=== PATIENT | female | born 1955 | race Caucasian/White ===

== ENCOUNTER → 2018-03-08 | Outpatient (CLI) | payer MEDICARE, OTHER ==
--- NOTE | 2018-03-08 12:03 | ECHOS ---
STRESS ECHOCARDIOGRAM INDICATIONS: Abnormal EKG. MEDICATIONS: Atorvastatin. BASELINE HEART RATE: 62 BASELINE BLOOD PRESSURE: 129/71 MAXIMUM HEART RATE: 150 MAXIMUM BLOOD PRESSURE: 174/61 85% MPHR: 132 METS: 7.0 MAXIMUM STAGE REACHED: 2 TOTAL EXERCISE TIME: 5:00 CLINICAL INFORMATION: Baseline rhythm is sinus mechanism, rate 62, normal axis and intervals. Voltage criteria for left ventricular hypertrophy. Nonspecific ST-T wave changes, baseline blood pressure 129/71 mmHg. Patient exercised on [place] protocol for 5 minutes reaching a peak rate of 150 beats per minute which is above her 85% maximum predicted heart rate. Peak blood pressure 174/61 mmHg. Test was terminated due to fatigue. There was no chest pain. Electrocardiographic monitoring revealed no evidence of diagnostic ischemic ST deviation. Occasional PVCs were noted. FINDINGS: Baseline echocardiogram revealed normal function at peak exercise, there was normal wall thickening and motion. CONCLUSION: 1. Decreased exercise tolerance with nondiagnostic electrocardiograph stress testing secondary to baseline EKG abnormality with occasional premature ventricular contractions. 2. Normal stress echocardiogram with no evidence of stress-induced ischemia. MMODL / IJN: [id number] /
== END | disposition home or self-care (01) ==
LOC: RADNMMAIN 08:41
PROVIDERS: ATTEND Internal Medicine
DX: R94.31 Abnormal electrocardiogram [ECG] [EKG] (principal)
CPT/HCPCS: C8930; Q9950; 93351

== ENCOUNTER 2018-08-09 16:40 | Emergency (ER) | payer MEDICARE, OTHER ==
[2018-08-09] MEDS ORDERED: LIDOCAINE 1% INJ 10MG/ML (20 ML MDV) SQ ONE (17:39)
--- NOTE | 2018-08-09 19:06 | ED ---
General Adult HPI - General Chief complaint: Wound/Laceration Stated complaint: finger lacs Time Seen by Provider: 08/09/18 17:38 Source: patient Mode of arrival: ambulatory Limitations: no limitations - History of Present Illness Initial comments: Patient is a 63-year-old male presents emergency Department with a laceration on her right second and third digit. Patient reports earlier today she was in the pool when she attempted to get out and lacerated her fingers on the edge. Patient denies any range of motion, numbness or tingling. Patient is not on blood thinners. Patient states her tetanus status is up-to-date. Patient reports minimal pain that does not radiate anywhere. Patient reports the pain is throbbing and rates it at a 4. Patient reports taking ibuprofen to alleviate the symptoms. - Related Data Allergies Allergy/AdvReac Type Severity Reaction Status Date / Time Penicillins Allergy Anaphylaxis Verified 08/09/18 16:45 Review of Systems ROS Statement: Those systems with pertinent positive or pertinent negative responses have been documented in the HPI. ROS Other: All systems not noted in ROS Statement are negative. Past Medical History Past Medical History: Hypertension History of Any Multi-Drug Resistant Organisms: None Reported Past Surgical History: No Surgical Hx Reported Past Psychological History: No Psychological Hx Reported Smoking Status: Never smoker Past Alcohol Use History: Occasional Past Drug Use History: None Reported General Exam - General Exam Comments Initial Comments: General: Well-developed well-nourished distress HEENT: Normocephalic/atraumatic, PERLL, Neck: Supple, nontender, trachea midline Chest/Lungs: Normal respirations, no signs of respiratory distress clear to auscultation bilaterally no wheezes, rales, rhonchi Cardiac: Regular rate and rhythm, normal S1-S2, no murmurs rubs or gallops Abdomen/GI: Soft nontender, bowel sounds equal or quadrant x4, no guarding, no rebound no CVA tenderness Musculoskeletal: Normal capillary refill, bilaterally. +2 ulnar and radial pulses, bilaterally. 3 cm laceration on the right second finger. 4 cm laceration on right third digit. Skin: Warmth, no rashes or lesions, no cyanosis or diaphoresis Neurologic: AAO x 3, CN 2-12 intact, Psychiatric: Mood and affect normal, judgment normal Limitations: no limitations Course Vital Signs 08/09/18 08/09/18 16:43 19:26 Temperature 97.9 F 98.8 F Pulse Rate 73 75 Respiratory 20 18 Rate Blood Pressure 212/105 136/94 O2 Sat by Pulse 99 96 Oximetry Procedures - Laceration Laceration #1 Consent Obtained: verbal consent Indication: laceration Site: other (right second digit) Size (cm): 3 Description: linear Depth: simple, single layer Anesthetic Used: lidocaine 1% Anesthesia Technique: local infiltration Amount (mls): 10 Pre-repair: irrigated extensively Type of Sutures: nylon Size of Sutures: 4-0 Number of Sutures: 7 Technique: simple, interrupted Patient Tolerated Procedure: well Laceration #2 Consent Obtained: verbal consent Indication: laceration Site: other (3rd right digit) Size (cm): 4 Description: linear Depth: simple, single layer Anesthetic Used: lidocaine 1% Anesthesia Technique: local infiltration Amount (mls): 10 Pre-repair: irrigated extensively Type of Sutures: nylon Size of Sutures: 4-0 Number of Sutures: 7 Technique: simple, interrupted Patient Tolerated Procedure: well Medical Decision Making - Medical Decision Making Patient is a 63-year-old female presented to emergency department with laceration on right second and third digit. Lacerations were repaired with 7 sutures each. Patient tolerated the procedure well. Tetanus prophylaxis was not administered. Patient advised to return for suture removal in 10-14 days or sooner if symptoms worsen. Patient advised to follow with primary care. Case discussed with physician. Disposition Clinical Impression: Laceration Disposition: HOME SELF-CARE Condition: Stable Instructions (If sedation given, give patient instructions): Care For Your Stitches (DC), Laceration (DC) Additional Instructions: Please follow proper wound care instructions. Please return to emergency department for suture removal in 10-14 days. Please follow up with primary care. Please return to emergency department if symptoms worsen. Is patient prescribed a controlled substance at d/c from ED?: No Referrals: Baldo Ernst MD [Primary Care Provider] - 1-2 days Time of Disposition: 19:05
[2018-08-09] MEDS ORDERED: IBUPROFEN 400 MG TAB PO STA (19:21)
[2018-08-09 19:28] VITALS: BP 136/94; PULSE 75; RESP 18; TEMP 98.8
== END 2018-08-09 19:26 | disposition home or self-care (01) ==
LOC: EC 16:40
DX: S61.210A Laceration without foreign body of right index finger without damage to nail, initial encounter (principal); S61.212A Laceration without foreign body of right middle finger without damage to nail, initial encounter; Z88.0 Allergy status to penicillin; X58.XXXA Exposure to other specified factors, initial encounter; Y92.89 Other specified places as the place of occurrence of the external cause
CPT/HCPCS: 99282; 12002; J2001

== ENCOUNTER → 2019-03-27 | Outpatient (CLI) | payer MEDICARE, OTHER ==
--- NOTE | 2019-03-27 12:36 | CTL ---
EXAMINATION TYPE: CT Low Dose Lung DATE OF EXAM ORDERED: 03/27/2019 HISTORY: Personal history of tobacco abuse. Lung cancer screening CT DLP: [address] CTDI: 3.29 mGy Automated exposure control for dose reduction was used. SCREENING VISIT: Initial COMPARISON: None TECHNIQUE: Low dose computed tomography scan was performed through the chest at 1 mm thick sections a nd reconstructed images in the coronal plane at [address] DIAGNOSTIC QUALITY: Limited, but interpretable FINDINGS: LUNG NODULES: There is a 3 x 3 mm solid pulmonary nodule in the left upper lobe on series 5 image 96. On series 5 image 117 there is a 3 x 4 mm solid pulmonary nodule in the left upper lobe. LUNGS: COPD: Severity: Mild Fibrosis: Severity: None Lymph nodes: Nonenlarged Other findings: Atelectasis along the superior mediastinal border of the left upper lobe. There is sc arring along the anterior right costophrenic angle on coronal series 6 image 70 and axial series 5 im age 10 and 4. RIGHT PLEURAL SPACE: Effusion: None Calcification: None Thickening: None Pneumothorax: None LEFT PLEURAL SPACE: Effusion: None Calcification: None Thickening: None Pneumothorax: None HEART: Heart Size: Normal Coronary calcification: Very few Pericardial effusion: None OTHER FINDINGS: Upper abdomen: Small hiatal hernia Bony thorax: Minimal degenerative change of the thoracic spine. IMPRESSION: Lung RADS 2-benign appearance or behavior. Annual screening low dose CT chest is recommen ded to evaluate for interval growth. FOLLOW UP CT CHEST RECOMMENDATION: Low-dose screen chest CT in [address] LUNG RAD: Lung-Rad 2 Benign Appearance or Behavior
== END | disposition home or self-care (01) ==
LOC: RADCTMAIN 11:22
PROVIDERS: ATTEND Internal Medicine
DX: Z12.2 Encounter for screening for malignant neoplasm of respiratory organs (principal); Z87.891 Personal history of nicotine dependence

== ENCOUNTER → 2019-08-06 | Outpatient (CLI) | payer MEDICARE, OTHER ==
--- NOTE | 2019-08-07 11:13 | MM ---
Reason for exam: screening (asymptomatic). Last mammogram was performed 3 years and 6 months ago. History: Patient is postmenopausal. Cyst aspiration of the right breast. Physical Findings: A clinical breast exam by your physician is recommended on an annual basis and results should be correlated with mammographic findings. MG 3D Screening Mammo W/Cad Bilateral CC and MLO view(s) were taken. Prior study comparison: February 03, 2016, bilateral MG 3d work up w/cad JAGDISH. February 01, 2016, bilateral MG screening mammo w CAD. The breast tissue is heterogeneously dense. This may lower the sensitivity of mammography. There are benign appearing round calcifications in the right breast. There is no discrete abnormality. ASSESSMENT: Benign, BI-RAD 2 RECOMMENDATION: Routine screening mammogram of both breasts in 1 year.
== END | disposition home or self-care (01) ==
LOC: RADMAMWWP 15:43
PROVIDERS: ATTEND Internal Medicine
DX: Z12.31 Encounter for screening mammogram for malignant neoplasm of breast (principal)
CPT/HCPCS: 77063; 77067

== ENCOUNTER 2019-12-10 23:52 | Emergency (ER) | payer MEDICARE, OTHER ==
[2019-12-10 23:58] VITALS: TEMP 97.8
[2019-12-11 01:04] LABS: Basophils % (A) 0 %; Eosinophils # (A) 0.2 k/uL (0-0.7); Eosinophils % (A) 2 %; HGB 13.6 gm/dL (11.4-16.0); Lymphocytes # (A) 2.2 k/uL (1.0-4.8); Lymphocytes % (A) 27 %; MCHC 32.4 g/dL (31.0-37.0); MCV 95.6 fL (80.0-100.0); Mean Platelet Volume 6.9; Monocytes # (A) 0.6 k/uL (0-1.0); Monocytes % (A) 7 %; Neutrophils # (A) 5.1 k/uL (1.3-7.7); Neutrophils % (A) 62 %; Platelet Count 350 k/uL (150-450); RBC 4.39 m/uL (3.80-5.40); RDW 12.9 % (11.5-15.5); WBC 8.2 k/uL (3.8-10.6)
[2019-12-11 01:13] LABS: ALT 18 U/L (4-34); AST 25 U/L (14-36); African American GFR (CKD) >90 (>60 ml/min/1.73 sqM); Albumin 4.2 g/dL (3.5-5.0); Alkaline Phosphatase 77 U/L (38-126); Anion Gap 6 mmol/L; Blood Urea Nitrogen 24 mg/dL (7-17); Calcium 9.8 mg/dL (8.4-10.2); Carbon Dioxide 30 mmol/L (22-30); Chloride 99 mmol/L (98-107); Glucose 138 mg/dL (74-99); Non-African American GFR(CKD) 83 (>60 ml/min/1.73 sqM); Potassium 3.9 mmol/L (3.5-5.1); Sodium 135 mmol/L (137-145); Total Bilirubin 0.6 mg/dL (0.2-1.3); Total Protein 7.1 g/dL (6.3-8.2)
[2019-12-11] MEDS ORDERED: SODIUM CHLORIDE 0.9% 500 ML 500 ML IV ONE (01:14)
--- NOTE | 2019-12-11 01:35 | ED ---
Eye Problem HPI - General Chief complaint: Eye Problems Stated complaint: Eye Problems Time Seen by Provider: 12/11/19 00:08 Source: family Mode of arrival: ambulatory Limitations: no limitations - History of Present Illness Initial comments: 64-year-old female patient presents to the emergency department today for evaluation of visual disturbance of the right eye. Patient states that this morning she developed a cloudy port gamble in her vision. She states that as the day went on a progressed to looking like a cobweb. Patient states when she looks all the way to the right she sees an arc of light. She states the cobweb does move in her vision when she looks around. She denies any pain to her eyes. She does report a recent dental infection with perforation into the right maxillary sinus. States she has been on antibiotics for three days. She states pain from this has improved over the last couple of days. Patient denies any recent rash, cough, shortness of breath, chest pain, abdominal pain, nausea, vomiting, diarrhea, constipation, back pain, numbness, tingling, dizziness, weakness, hematuria, dysuria, urinary urgency, urinary frequency, headache, or any other complaints. - Related Data Previous Rx's Medication Instructions Recorded Metoprolol Tartrate 25 mg PO DAILY #30 tab 12/11/19 Allergies Allergy/AdvReac Type Severity Reaction Status Date / Time Penicillins Allergy Anaphylaxis Verified 12/10/19 23:58 Review of Systems ROS Statement: Those systems with pertinent positive or pertinent negative responses have been documented in the HPI. ROS Other: All systems not noted in ROS Statement are negative. Past Medical History Past Medical History: Hyperlipidemia, Hypertension History of Any Multi-Drug Resistant Organisms: None Reported Past Surgical History: No Surgical Hx Reported Additional Past Surgical History / Comment(s): dental Past Psychological History: No Psychological Hx Reported Smoking Status: Former smoker Past Alcohol Use History: Occasional Past Drug Use History: None Reported General Exam Limitations: no limitations General appearance: alert, in no apparent distress, other (This is a well- developed, well-nourished adult female patient in no acute distress. Vital signs upon presentation are temperature 97.8F, pulse 73, respirations 18, blood pressure 203/91, pulse ox 99% on room air.) Eye exam: Present: normal appearance, PERRL, EOMI, other (Funduscopic examination performed with ophthalmoscope shows no acute abnormalities with this limited exam.). Absent: scleral icterus, conjunctival injection, periorbital swelling Expanded IOP (R) in mmH IOP (L) in mmH IOP measured with: [facility] ENT exam: Present: normal exam, normal oropharynx, mucous membranes moist Respiratory exam: Present: normal lung sounds bilaterally. Absent: respiratory distress, wheezes, rales, rhonchi, stridor Cardiovascular Exam: Present: regular rate, normal rhythm, normal heart sounds. Absent: systolic murmur, diastolic murmur, rubs, gallop, clicks Neurological exam: Present: alert, oriented X3, CN II-XII intact Psychiatric exam: Present: normal affect, normal mood Skin exam: Present: warm, dry, intact, normal color. Absent: rash Course Vital Signs 12/10/19 12/11/19 12/11/19 23:54 00:58 02:24 Temperature 97.8 F Pulse Rate 73 56 L Respiratory 18 16 Rate Blood Pressure 203/91 164/97 151/80 O2 Sat by Pulse 99 98 Oximetry Medical Decision Making - Medical Decision Making 64 year-old female patient presents to the emergency department today for evaluation of visual disturbance to the right eye. Patient reports a cobweb floating in her vision and an arc of light when she looks to the right. Physical examination is relatively unremarkable. Pressures to the right and left eyes were 14 mmHg. Patient is having no pain with this. Limited funduscopic examination was performed with ophthalmoscope showed intact retina, with some shadowing over the lower portion. Given recent dental infection with perforation to the right maxillary sinus we did perform labs and CT orbits. 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 I did discuss the case with the housekeeper caregiver Dr. Pizano who will see the patient in his office in the morning at 0715. Patient was informed of all CT results. She was given neurosurgery follow up. Also, patient was started on Metoprolol 25mg, discussed side effects and symptoms of low heart rate and blood pressure. She is instructed to follow up with her primary care physician for recheck in 1-2 days. She is instructed not neurosurgery as soon as possible. Return parameters were discussed in detail. She verbalizes understanding and agrees with this plan. - Lab Data Result diagrams: 12/11/19 00:55 12/11/19 00:55 Lab Results 12/11/19 12/11/19 Range/Units 00:55 00:55 WBC 8.2 (3.8-10.6) k/uL RBC 4.39 (3.80-5.40) m/uL Hgb 13.6 (11.4-16.0) gm/dL Hct 42.0 (34.0-46.0) % MCV 95.6 (80.0-100.0) fL MCH 31.0 (25.0-35.0) pg MCHC 32.4 (31.0-37.0) g/dL RDW 12.9 (11.5-15.5) % Plt Count 350 (150-450) k/uL Neutrophils % 62 % Lymphocytes % 27 % Monocytes % 7 % Eosinophils % 2 % Basophils % 0 % Neutrophils # 5.1 (1.3-7.7) k/uL Lymphocytes # 2.2 (1.0-4.8) k/uL Monocytes # 0.6 (0-1.0) k/uL Eosinophils # 0.2 (0-0.7) k/uL Basophils # 0.0 (0-0.2) k/uL Sodium 135 L (137-145) mmol/L Potassium 3.9 (3.5-5.1) mmol/L Chloride 99 (98-107) mmol/L Carbon Dioxide 30 (22-30) mmol/L Anion Gap 6 mmol/L BUN 24 H (7-17) mg/dL Creatinine 0.76 (0.52-1.04) mg/dL Est GFR (CKD-EPI)AfAm >90 (>60 ml/min/1.73 sqM) Est GFR (CKD-EPI)NonAf 83 (>60 ml/min/1.73 sqM) Glucose 138 H (74-99) mg/dL Calcium 9.8 (8.4-10.2) mg/dL Total Bilirubin 0.6 (0.2-1.3) mg/dL AST 25 (14-36) U/L ALT 18 (4-34) U/L Alkaline Phosphatase 77 (38-126) U/L Total Protein 7.1 (6.3-8.2) g/dL Albumin 4.2 (3.5-5.0) g/dL - Radiology Data Radiology results: report reviewed, image reviewed CT orbits are obtained with contrast. Report was reviewed in its entirety. Impression by Dr. Echeverria shows mild sinus disease. Large aneurysm in the region of the left MCA, as above. Disposition Clinical Impression: Visual disturbance, Brain aneurysm Disposition: HOME SELF-CARE Condition: Good Additional Instructions: Follow up with Dr. Pizano ophthalmology in the morning at 7:15am. Follow up with your primary care physician for recheck in 1-2 days. Monitor blood pressures closely. Avoid any high stress situations. Return to the emergency department immediately for any new, worsening, or concerning symptoms. Prescriptions: Metoprolol Tartrate 25 mg PO DAILY #30 tab Is patient prescribed a controlled substance at d/c from ED?: No Referrals: Baldo Ernst MD [Primary Care Provider] - 1-2 days Eleanor Pizano MD [STAFF PHYSICIAN] - 1-2 days Cole Godinez MD [STAFF PHYSICIAN] - 1-2 days Time of Disposition: 02:29
--- NOTE | 2019-12-11 02:10 | CT ---
EXAM: CT Orbits With Intravenous Contrast CLINICAL HISTORY: ITS.REASON CT Reason: Visual disturbance; sinus infection TECHNIQUE: Axial computed tomography images of the orbits with intravenous contrast. CTDI is 17.07 mGy and DLP is 275.1 mGy-cm. This CT exam was performed using one or more of the following dose reduction techniques: automated exposure control, adjustment of the mA and/or kV according to patient size, and/or use of iterative reconstruction technique. COMPARISON: No relevant prior studies available. FINDINGS: Orbits: Bilateral globes appear intact. Sinuses: Mild maxillary and ethmoid sinus disease. Bones/joints: No acute fracture. Soft tissues: Unremarkable. Vasculature: Large focal outpouching compatible with aneurysm measuring up to 16 mm in the region of the left MCA bifurcation. IMPRESSION: 1. Mild sinus disease. 2. Large aneurysm in the region of the left MCA, as above.
[2019-12-11 02:25] VITALS: BP 151/80; PULSE 56; RESP 16
[2019-12-11] MEDS ORDERED: METOPROLOL TARTRATE 25 MG TAB PO STA (02:30)
== END 2019-12-11 03:16 | disposition home or self-care (01) ==
LOC: EC 23:52
DX: I67.1 Cerebral aneurysm, nonruptured (principal); H53.9 Unspecified visual disturbance; Z88.0 Allergy status to penicillin; Z86.19 Personal history of other infectious and parasitic diseases; Z87.891 Personal history of nicotine dependence
CPT/HCPCS: 36415; 80053; 85025; 70481; 99284; Q9967

== ENCOUNTER → 2020-10-21 | Outpatient (CLI) | payer MEDICARE, OTHER ==
--- NOTE | 2020-10-21 12:06 | CTL ---
EXAMINATION TYPE: CT Low Dose Lung DATE OF EXAM ORDERED: 10/21/2020 HISTORY: Long-term tobacco use. Lung cancer screening CT DLP: 120.[address] CTDI: 3.70 mGy Automated exposure control for dose reduction was used. SCREENING VISIT: First study after baseline COMPARISON: Prior study March 27, 2019 TECHNIQUE: Low dose computed tomography scan was performed through the chest at 1 mm thick sections a nd reconstructed images in the coronal plane at [address] DIAGNOSTIC QUALITY: Satisfactory FINDINGS: LUNG NODULES: None. No new or enlarging greater than 4 mm nodules. The prior Visualized micronodules are not clearly see n on today's study. LUNGS: COPD: Severity: Mild Fibrosis: Severity: Mild Lymph nodes: No new greater than 1 cm Other findings: None RIGHT PLEURAL SPACE: Effusion: None Calcification: None Thickening: None Pneumothorax: None LEFT PLEURAL SPACE: Effusion: None Calcification: None Thickening: None Pneumothorax: None HEART: Heart Size: Normal Coronary calcification: Minimal Pericardial effusion: None OTHER FINDINGS: Upper abdomen: None Bony thorax: None Supraclavicular region: None Other: None IMPRESSION: No new or enlarging nodules. CT LUNG RAD AND CT CHEST RECOMMENDATION: Lung-Rad 2 Benign Appearance or Behavior: Continue annual sc reening with LDCT in 12 months. S Modifier (other clinically significant findings): None
--- NOTE | 2020-10-22 13:17 | MM ---
Reason for exam: screening (asymptomatic). Last mammogram was performed 1 year and 2 months ago. History: Patient is postmenopausal. Family history of breast cancer in aunt. Cyst aspiration of the right breast. Physical Findings: A clinical breast exam by your physician is recommended on an annual basis and results should be correlated with mammographic findings. MG 3D Screening Mammo W/Cad Bilateral CC and MLO view(s) were taken. Prior study comparison: August 06, 2019, bilateral MG 3d screening mammo w/cad. The breast tissue is heterogeneously dense. This may lower the sensitivity of mammography. There is no discrete abnormality. No significant changes when compared with prior studies. ASSESSMENT: Negative, BI-RAD 1 RECOMMENDATION: Routine screening mammogram of both breasts in 1 year.
== END | disposition home or self-care (01) ==
LOC: RADMAMWWP 07:49
PROVIDERS: ATTEND Family Medicine
DX: Z12.31 Encounter for screening mammogram for malignant neoplasm of breast (principal); Z12.2 Encounter for screening for malignant neoplasm of respiratory organs; Z87.891 Personal history of nicotine dependence
CPT/HCPCS: 71271; 77063; 77067

== ENCOUNTER → 2022-03-20 | Outpatient (CLI) | payer MEDICARE, OTHER ==
--- NOTE | 2022-03-20 11:58 | MM ---
Reason for Exam: Screening (asymptomatic). Last mammogram was performed 1 year(s) and 4 month(s) ago. Patient History: Menarche at age 9. First Full-Term at age 21. Postmenopausal. Patient has history of breast feeding. Cyst Aspiration on the Right side. Maternal aunt had breast cancer, age 75. Risk Values: Audrey 5 year model risk: 1.7%. NCI Lifetime model risk: 5.2%. Prior Study Comparison: 02/03/2016 Bilateral Diagnostic Mammogram, [facility]. 08/06/2019 Bilateral Screening Mammogram, [facility]. 10/21/2020 Bilateral Screening Mammogram, [facility]. Tissue Density: There are scattered fibroglandular densities. Findings: Analyzed By CAD. A few scattered tiny benign calcifications are redemonstrated bilaterally. There is no suspicious new group of microcalcifications or new suspicious mass in either breast. Overall Assessment: Benign, BI-RAD 2 Management: Screening Mammogram of both breasts in 1 year. A clinical breast exam by your physician is recommended on an annual basis and results should be correlated with mammographic findings. Electronically signed and approved by: Ranjit Bowman M.D.
== END | disposition home or self-care (01) ==
LOC: RADMAMWWP 07:39
PROVIDERS: ATTEND Family Medicine
DX: Z12.31 Encounter for screening mammogram for malignant neoplasm of breast (principal); Z78.0 Asymptomatic menopausal state; Z80.3 Family history of malignant neoplasm of breast
CPT/HCPCS: 77063; 77067

== ENCOUNTER → 2022-03-20 | Outpatient (CLI) | payer MEDICARE, OTHER ==
--- NOTE | 2022-03-20 09:59 | CTL ---
EXAMINATION TYPE: CT Low Dose Lung DATE OF EXAM ORDERED: 03/20/2022 HISTORY: Long-term tobacco use. Lung cancer screening CT DLP: 83.[address] CTDI: 2.4 mGy Automated exposure control for dose reduction was used. SCREENING VISIT: Second after baseline COMPARISON: Prior studies 2020 and 2019 TECHNIQUE: Low dose computed tomography scan was performed through the chest at 1 mm thick sections a nd reconstructed images in multiple planes at 1 mm and [address] DIAGNOSTIC QUALITY: Satisfactory FINDINGS: LUNG NODULES: None. No new or enlarging greater than 4 mm pulmonary nodules LUNGS: COPD: Severity: Mild Fibrosis: Severity: Mild scattered Lymph nodes: No new greater than 1 cm Other findings: None RIGHT PLEURAL SPACE: Effusion: None Calcification: None Thickening: None Pneumothorax: None LEFT PLEURAL SPACE: Effusion: None Calcification: None Thickening: None Pneumothorax: None HEART: Heart Size: Normal Coronary Calcification: Minimal Pericardial Effusion: None OTHER FINDINGS: Upper abdomen: Small sized hiatal hernia on current study Bony thorax: None Supraclavicular region: None Other: None IMPRESSION: No significant new or enlarging pulmonary nodules CT LUNG RAD AND CT CHEST RECOMMENDATION: Lung-Rad 1 Negative: Continue annual screening with LDCT in 12 months. S Modifier (other clinically significant findings): None
== END | disposition home or self-care (01) ==
LOC: RADCTMAIN 08:04
PROVIDERS: ATTEND Family Medicine
DX: Z12.2 Encounter for screening for malignant neoplasm of respiratory organs (principal); Z87.891 Personal history of nicotine dependence
CPT/HCPCS: 71271

== ENCOUNTER 2022-07-08 09:02 | Emergency (ER) | payer MEDICARE, OTHER ==
[2022-07-08 09:08] VITALS: BP 158/92; PULSE 75; RESP 18; TEMP 98.1
[2022-07-08] MEDS ORDERED: HYDROcodone/APAP 5-325MG 1 EACH TAB PO STA (09:40)
[2022-07-08] MEDS ORDERED: ACET/COD 300 MG/30 MG STARTER PACK 6 TAB BTL PO STA (09:45)
--- NOTE | 2022-07-08 09:46 | ED ---
Skin/Abscess/FB HPI - General Chief complaint: Skin/Abscess/Foreign Body Stated complaint: R leg cyst Time Seen by Provider: 07/08/22 09:10 Source: patient, RN notes reviewed Mode of arrival: ambulatory Limitations: no limitations - History of Present Illness Initial comments: This a 67-year-old female presents emergency Department with chief complaint of right groin swelling, drainage. Patient states that this started about a week ago states that she was started on some Bactrim states that helping states now is draining area she states that the pain is about pain but has not received anything for the pain. Patient denies any reported fever. Patient states that she's never had any like this in the past denies being diabetic. Patient offers no other associated symptoms. Patient states she has ALLERGY to penicillin. Is not taking anything for the pain. - Related Data Previous Rx's Medication Instructions Recorded Metoprolol Tartrate 25 mg PO DAILY #30 tab 12/11/19 Cephalexin [Keflex] 500 mg PO Q6HR #28 cap 07/08/22 Allergies Allergy/AdvReac Type Severity Reaction Status Date / Time Penicillins Allergy Anaphylaxis Verified 12/10/19 23:58 Review of Systems ROS Statement: Those systems with pertinent positive or pertinent negative responses have been documented in the HPI. ROS Other: All systems not noted in ROS Statement are negative. Past Medical History Past Medical History: Hyperlipidemia, Hypertension Additional Past Medical History / Comment(s): brain aneurysm, History of Any Multi-Drug Resistant Organisms: None Reported Past Surgical History: No Surgical Hx Reported Additional Past Surgical History / Comment(s): dental, stent to brain aneurysm, Past Psychological History: No Psychological Hx Reported Smoking Status: Former smoker Past Alcohol Use History: Occasional Past Drug Use History: None Reported General Exam Limitations: no limitations General appearance: alert, in no apparent distress Head exam: Present: atraumatic, normocephalic, normal inspection Respiratory exam: Present: normal lung sounds bilaterally. Absent: respiratory distress, wheezes, rales, rhonchi, stridor Cardiovascular Exam: Present: regular rate, normal rhythm, normal heart sounds. Absent: systolic murmur, diastolic murmur, rubs, gallop, clicks Skin exam: Present: other (Right groin, lateral labia there is some erythema, abscess that is open with purulent drainage noted, there is surrounding edema and tenderness.) Course Vital Signs 07/08/22 09:03 Temperature 98.1 F Pulse Rate 75 Respiratory 18 Rate Blood Pressure 158/92 O2 Sat by Pulse 98 Oximetry Medical Decision Making - Medical Decision Making Was pt. sent in by a medical professional or institution ([facility], CLOTHES DESIGNER, urgent care, hospital, or snf...) When possible be specific @ -No Did you speak to anyone other than the patient for history (EMS, parent, family, police, friend...)? What history was obtained from this source @ -No Did you review nursing and triage notes (agree or disagree)? Why? @ -I reviewed and agree with nursing and triage notes Were old charts reviewed (outside hosp., previous admission, EMS record, old EKG, old radiological studies, urgent care reports/EKG's, snf records)? Report findings @ -No old charts were reviewed Differential Diagnosis (chest pain, altered mental status, abdominal pain women, abdominal pain men, vaginal bleeding, weakness, fever, dyspnea, syncope, headache, dizziness, GI bleed, back pain, seizure, CVA, palpatations, mental health, musculoskeletal)? @ -Abscess ingrown hair, hydradenitis EKG interpreted by me (3pts min.). @ -None X-rays interpreted by me (1pt min.). @ -None done CT interpreted by me (1pt min.). @ -None done U/S interpreted by me (1pt. min.). @ -None done What testing was considered but not performed or refused? (CT, X-rays, U/S, labs)? Why? @ -None What meds were considered but not given or refused? Why? @ -None Did you discuss the management of the patient with other professionals (professionals i.e. [facility], CLOTHES DESIGNER, lab, RT, psych nurse, social staff worker, dynamite packing machine operator, teacher, operations officer afloat, clinical case manager)? Give summary @ -No Was smoking cessation discussed for >3mins.? @ -No Was critical care preformed (if so, how long)? @ -No Were there social determinants of health that impacted care today? How? (Homelessness, low income, unemployed, alcoholism, drug addiction, transportation, low edu. Level, literacy, decrease access to med. care, senior care, rehab)? @ -No Was there de-escalation of care discussed even if they declined (Discuss DNR or withdrawal of care, Hospice)? DNR status @ -No What co-morbidities impacted this encounter? (DM, HTN, Smoking, COPD, CAD, Cancer, CVA, ARF, Chemo, Hep., AIDS, mental health diagnosis, sleep apnea, morbid obesity)? @ -None Was patient admitted / discharged? Hospital course, mention meds given and route, prescriptions, significant lab abnormalities, going to OR and other pertinent info. @ -Discharge patient has abscess to have surrounding it induration with open abscess draining vitals are stable. Patient will continue on antibiotics return parameters were discussed. Undiagnosed new problem with uncertain prognosis? @ -No Drug Therapy requiring intensive monitoring for toxicity (Heparin, Nitro, Insulin, Cardizem)? @ -No Were any procedures done? @ -No Diagnosis/symptom? @ -Right groin abscess open Acute, or Chronic, or Acute on Chronic? @ -Acute Uncomplicated (without systemic symptoms) or Complicated (systemic symptoms)? @ -Uncomplicated Side effects of treatment? @ -No Exacerbation, Progression, or Severe Exacerbation? @ -No Poses a threat to life or bodily function? How? (Chest pain, [place], [place], pneumonia, PE, COPD, DKA, ARF, appy, cholecystitis, CVA, Diverticulitis, Homicidal, Suicidal, threat to staff... and all critical care pts) @ -No Disposition Clinical Impression: Groin abscess Disposition: HOME SELF-CARE Condition: Stable Instructions (If sedation given, give patient instructions): Abscess (ED) Additional Instructions: Please return to the Emergency Department if symptoms worsen or any other concerns. Prescriptions: Cephalexin [Keflex] 500 mg PO Q6HR #28 cap Is patient prescribed a controlled substance at d/c from ED?: No Referrals: Andi Mujica MD [Primary Care Provider] - 1-2 days Time of Disposition: 09:46
== END 2022-07-08 10:00 | disposition home or self-care (01) ==
LOC: EC 09:02
DX: L02.214 Cutaneous abscess of groin (principal); I10 Essential (primary) hypertension; Z88.0 Allergy status to penicillin; Z87.891 Personal history of nicotine dependence
CPT/HCPCS: 99283

== ENCOUNTER → 2023-08-30 | Outpatient (CLI) | payer MEDICARE, OTHER ==
--- NOTE | 2023-08-30 10:52 | MR ---
EXAMINATION TYPE: MR MRA/MRV head wo con DATE OF EXAM: 08/30/2023 10:00 AM CLINICAL INDICATION:Female, 68 years old with history of I67.1 CEREBRAL ANEURYSM, NONRUPTURED; Follow up aneurysm repair. COMPARISON: TECHNIQUE: MRA brain: 3-D [id number] Axial with MIP and 3-D reconstruction performed on a separate workstati on. MRV of the brain: performed utilizing two-dimensional [id number] technique MIP and 3-D reconstruc tion. Performed on a separate workstation. IV Contrast: (None if empty) Findings: Vertebral arteries: The vertebral arteries are patent. The right vertebral artery is dominant. Basilar artery: The basilar artery is intact. The basilar artery bifurcation is normal. Internal Carotid arteries: The cervical, petrous, cavernous and supraclinoid segments are normal. JUNIOR: Patent without evidence of aneurysm. ACOM: Patent without evidence of aneurysm. MCA: Patent without evidence of aneurysm. Poor visualization of the left M1 segment with aneurysm cli p susceptibility artifact. No additional aneurysms identified. COMMERCIAL LOAN ASSISTANT: Patent without evidence of aneurysm. PCOM: Hypoplastic bilaterally. There is no evidence of venous occlusion or collateral circulation. There is no evidence of sinus th rombosis. IMPRESSION: 1. No evidence of venous sinus thrombosis. 2. No evidence of intracranial aneurysm or significant stenosis. 3. Left M1 segment 4 visualization with susceptibility artifact in the left middle cranial fossa com patible with prior aneurysm repair. The aneurysm is poorly visualized due to susceptibility.
== END | disposition home or self-care (01) ==
LOC: RADMRIMAIN 08:52
PROVIDERS: ATTEND Specialist
DX: I67.1 Cerebral aneurysm, nonruptured (principal)
CPT/HCPCS: 70544

== ENCOUNTER → 2023-08-30 | Outpatient (CLI) | payer MEDICARE, OTHER ==
--- NOTE | 2023-09-06 21:55 | MM ---
Reason for Exam: Screening (asymptomatic). Last mammogram was performed 1 year(s) and 6 month(s) ago. Patient History: Menarche at age 9. First Full-Term at age 21. Postmenopausal. Patient has history of breast feeding. Cyst Aspiration on the Right side. Maternal aunt had breast cancer, age 75. Risk Values: Audrey 5 year model risk: 1.7%. NCI Lifetime model risk: 5.0%. Prior Study Comparison: 08/06/2019 Bilateral Screening Mammogram, [facility]. 10/21/2020 Bilateral Screening Mammogram, [facility]. 03/20/2022 Bilateral MG 3D screening mammo w/cad, [facility]. Tissue Density: There are scattered areas of fibroglandular density. Findings: Analyzed By CAD. Areas of asymmetric density are unchanged. There is no suspicious group of microcalcifications or new suspicious mass in either breast. Overall Assessment: Benign, BI-RAD 2 Management: Screening Mammogram of both breasts in 1 year. . Patient should continue monthly self-breast exams. A clinical breast exam by your physician is recommended on an annual basis. This exam should not preclude additional follow-up of suspicious palpable abnormalities. Note on Audrey scores and lifetime risk: 1. A Audrey score greater than 3% is considered moderate risk. If this is the case, consider specialist referral to assess eligibility for a risk reducing agent. 2. If overall lifetime risk for the development of breast cancer is 20% or higher, the patient may qualify for future screening with alternating mammogram and breast MRI. Electronically signed and approved by: Naida Perez M.D. Radiologist
== END | disposition home or self-care (01) ==
LOC: RADMAMWWP 09:50
PROVIDERS: ATTEND Family Medicine
DX: Z12.31 Encounter for screening mammogram for malignant neoplasm of breast (principal); R92.323 Mammographic fibroglandular density, bilateral breasts; Z78.0 Asymptomatic menopausal state; Z80.3 Family history of malignant neoplasm of breast
CPT/HCPCS: 77063; 77067

== ENCOUNTER → 2023-08-30 | Outpatient (CLI) | payer MEDICARE, OTHER ==
--- NOTE | 2023-08-30 10:45 | CTL ---
EXAMINATION TYPE: CT Low Dose Lung DATE OF EXAM ORDERED: 08/30/2023 History: Lung cancer screening CT DLP: 86.[address] CTDI: 2.4 mGy Automated exposure control for dose reduction was used. Comparison: 03/20/2022 TECHNIQUE: Low dose computed tomography scan was performed through the chest at 1 mm thick sections a nd reconstructed images in multiple planes at 1 mm and [address] DIAGNOSTIC QUALITY: Satisfactory FINDINGS: There is a stable 4 mm nodule in the right middle lobe and a small inferior 4 mm minor fissural nodul e on the right. No new or suspicious lung masses or nodules are seen. There is no airspace consolidation or abnormal interstitial density. There is no pleural effusion, pleural thickening or pneumothorax. There is mild 4 cm aneurysmal dilatation of the ascending thoracic aorta. There is no mediastinal, hilar or axillary adenopathy. Limited scanning through the upper abdomen reveals no gross abnormality. No focal osseous lesions are seen. IMPRESSION: 1. Lung rads category 2 benign. Continue routine screening at yearly intervals. 2. No acute cardiopulmonary disease. 3. 4 cm aneurysmal dilatation of the ascending thoracic aorta.
== END | disposition home or self-care (01) ==
LOC: RADCTMAIN 08:58
PROVIDERS: ATTEND Family Medicine
DX: Z12.2 Encounter for screening for malignant neoplasm of respiratory organs (principal); I71.21 Aneurysm of the ascending aorta, without rupture; Z87.891 Personal history of nicotine dependence
CPT/HCPCS: 71271